=== PATIENT | male | born 1940 | race African-American/Black ===

== ENCOUNTER 2016-09-12 13:13 | Emergency (ER) | payer BC ==
[~2016-09-12] VITALS: Ht 170.2 cm; Wt 61.2 kg
[2016-09-12 14:04] VITALS: BP 140/101
--- NOTE | 2016-09-12 16:07 | RAD ---
Three-view right knee study Indications: Right knee pain. Right knee and the knee gives out. Findings: No acute fracture or dislocation or osteolytic process is seen. 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 IMPRESSION: No acute fracture.
--- NOTE | 2016-09-12 16:20 | PHYS DOC ---
Past Medical History Past Medical History: No Pertinent History Past Surgical History: No Surgical History Additional Information: 0.5 PPD Alcohol Use: Occasionally Additional Information: "A BEER WHEN I GET MY CHECKS, ABOUT EVERY 3 WEEKS" Drug Use: None Social History Narrative: lives with his brother Adult General Chief Complaint Chief Complaint: KNEE INJURY HPI HPI Patient is a 75 year old male who presents with increase in his chronic right knee pain over the last week. He denies any recent injury to the knee. He states that it feels like his knee is going to give out on him and cause him to fall. He has been using a cane to help him walk, but does not typically use a cane for walking. He does not have a PCP. Review of Systems Review of Systems Constitutional: Denies fever or chills. [] Musculoskeletal: Denies back pain. Reports right knee pain. Integument: Denies rash or skin lesions. [] Neurologic: Denies focal weakness or sensory changes. [] Allergies Allergies Allergies Coded Allergies Type Severity Reaction Last Updated Verified No Known Drug Allergies 09/12/16 No Physical Exam Physical Exam Constitutional: Well developed, well nourished, no acute distress, non-toxic appearance. [] HENT: Normocephalic, atraumatic, oropharynx moist. [] Eyes: PERRLA, EOMI, conjunctiva normal, no discharge. [] Skin: Warm, dry, no erythema, no rash. There is no laceration, abrasion, ecchymosis, erythema, or warmth of the right knee. Extremities: Right patella tenderness, full active ROM intact, no edema. Distal pulses equal bilaterally. Light touch sensation intact distally. There is no tenderness of the hip, thigh, calf, ankle, or foot. Neurologic: Alert and oriented X 3, normal motor function, normal sensory function, no focal deficits noted. [] Psychologic: Affect normal, judgement normal, mood normal. [] Current Patient Data Vital Signs Vital Signs Date Time Temp Pulse Resp B/P Pulse Ox O2 Delivery O2 Flow Rate FiO2 09/12/16 14:04 96.8 125 20 140/101 96 Room Air 96.8 EKG EKG [] Radiology/Procedures Radiology/Procedures REASON: pain, feels like knee is going to give out PROCEDURE: KNEE RIGHT 3V Three-view right knee study Indications: Right knee pain. Right knee and the knee gives out. Findings: No acute fracture or dislocation or osteolytic process is seen. 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 IMPRESSION: No acute fracture. Course & Med Decision Making Course & Med Decision Making Pertinent Labs and Imaging studies reviewed. (See chart for details) The patient is a 75 year old male who presents with atraumatic increase in his chronic right knee pain. On exam, there is no evidence of trauma or infection. He is neurovascularly intact. He has tenderness over the patella. Xray does not show any acute fractures. There does appear to be a high-riding patella without dislocation. He is provided with an Perry wrap. He is encouraged to continue to use his cane for assistance with walking. He is given contact information for orthopedics for follow up. He declines offer for pain medication. Return precautions were discussed. He verbalizes understanding and agrees with plan. Dragon Disclaimer Dragon Disclaimer This electronic medical record was generated, in whole or in part, using a voice recognition dictation system. Departure Departure Impression: Primary Impression: Knee pain, right Disposition: 01 HOME, SELF-CARE Condition: STABLE Referrals: CONNOR HOGUE MD Patient Instructions: Knee - Patella Problems, Knee Pain, [id number], Knee Wraps (Elastic Bandage) and RICE Additional Instructions: Your xray did not show any broken bones or dislocation. Please wear the provided Perry wrap to help increase your stability in the knee. Please continue to use your cane for assistance with walking. Please follow up with the orthopedic doctor listed below if your pain continues. Return to the emergency department if you have any new or concerning symptoms. Problem Qualifiers Primary Impression: Knee pain, right Chronicity: chronic Qualified Code: M25.561 - Pain in right knee SANTINO YAN Sep 12, 2016 16:20
== END 2016-09-12 16:23 | disposition home or self-care (01) ==
LOC: ER 13:13
DX: M25.561 Pain in right knee (principal); G89.29 Other chronic pain; F17.200 Nicotine dependence, unspecified, uncomplicated
CPT/HCPCS: 73562; 99284

== ENCOUNTER 2017-05-29 09:17 | Emergency (ER) | payer OTHER, BC ==
[2017-05-29 10:42] LABS: BILIRUBIN,URINE NEGATIVE (NEG); GLUCOSE,URINE NEGATIVE (NEG); NITRITE,URINE NEGATIVE (NEG); PH,URINE 5.5; PROTEIN,URINE NEGATIVE (NEG-TRACE); UROBILINOGEN,URINE 0.2 mg/dL (0.2 mg/dL)
[2017-05-29 10:52] LABS: ADD MAN DIFF? NO
[2017-05-29 10:56] LABS: BASO # 0.1 x10^3/uL (0.0-0.2); BASO % 1 % (0-3); EOS % 4 % (0-3); HEMATOCRIT 47.6 % (39.0-53.0); LYMPH # 2.1 x10^3/uL (1.0-4.8); LYMPH % 33 % (24-48); MEAN CORPUSCULAR HEMOGLOBIN 31 pg (25-35); MEAN CORPUSCULAR HGB CONC 34 g/dL (31-37); MEAN CORPUSCULAR VOLUME 93 fL (79-100); MONO % 7 % (0-9); NEUT % 54 % (31-73); PLATELET COUNT 237 x10^3/uL (140-400); RED CELL DISTRIBUTION WIDTH 14.9 % (11.5-14.5); WHITE BLOOD COUNT 6.3 x10^3/uL (4.0-11.0)
[2017-05-29 11:03] LABS: ANION GAP 14 (6-14); BLOOD UREA NITROGEN 10 mg/dL (8-26); BUN/CREATININE RATIO 14 (6-20); CALCIUM 9.1 mg/dL (8.5-10.1); CARBON DIOXIDE 24 mmol/L (21-32); CHLORIDE 104 mmol/L (98-107); CREATININE 0.7 mg/dL (0.7-1.3); GFR 133.4; GLUCOSE 139 mg/dL (70-99); SODIUM 142 mmol/L (136-145)
[2017-05-29 11:04] LABS: POTASSIUM 4.5 mmol/L (3.5-5.1)
[2017-05-29 11:09] LABS: ALBUMIN 4.1 g/dL (3.4-5.0); ALBUMIN/GLOBULIN RATIO 1.1 (1.0-1.7); ALK PHOS 119 U/L (46-116); ALT (SGPT) 43 U/L (16-63); AST (SGOT) 33 U/L (15-37); TOTAL BILIRUBIN 0.3 mg/dL (0.2-1.0); TOTAL PROTEIN 7.9 g/dL (6.4-8.2)
[2017-05-29 11:11] LABS: BACTERIA,URINE 0 /HPF (0-FEW); RBC,URINE >40 /HPF (0-2); SQUAMOUS EPITHELIAL CELL,UR FEW /LPF; WBC,URINE 0 /HPF (0-4)
== END 2017-05-29 11:46 | disposition home or self-care (01) ==
LOC: ER 09:17
DX: N48.89 Other specified disorders of penis (principal); R31.9 Hematuria, unspecified
CPT/HCPCS: 36415; 74176; 80053; 81001; 85025; 99285-25